=== PATIENT | female | born 1990 | race Two or more races ===

== ENCOUNTER → 2023-12-10 | Outpatient (REF) | payer OTHER | LOC: M SFHCWAGY 17:12 | PROVIDERS: ATTEND Obstetrics & Gynecology | DX: Z36.89 Encounter for other specified antenatal screening (principal); Z3A.36 36 weeks gestation of pregnancy ==

== ENCOUNTER → 2023-12-18 | Outpatient (REF) | payer OTHER | LOC: M SFHCWAGY 17:20 | PROVIDERS: ATTEND Obstetrics & Gynecology | DX: Z3A.37 37 weeks gestation of pregnancy (principal) ==

== ENCOUNTER 2023-12-27 19:19 | Outpatient (CLI) | payer OTHER ==
[~2023-12-27] VITALS: Ht 167.6 cm; Wt 68.7 kg
[2023-12-27 19:37] VITALS: BP 126/76; O2SAT 100
[2023-12-27] MEDS ORDERED: HOME MED LIST COMPLETE! XX SCH (19:45)
== END 2023-12-27 22:40 | disposition home or self-care (01) ==
LOC: M LDO 19:19
PROVIDERS: ATTEND Advanced Practice Midwife
DX: O47.1 False labor at or after 37 completed weeks of gestation (principal); O34.219 Maternal care for unspecified type scar from previous cesarean delivery; Z3A.38 38 weeks gestation of pregnancy
CPT/HCPCS: 59025; G0463

== ENCOUNTER 2024-01-01 00:17 | Outpatient (CLI) | payer OTHER ==
[~2024-01-01] VITALS: Ht 167.6 cm; Wt 70.0 kg
[2024-01-01] MEDS ORDERED: HOME MED LIST COMPLETE! XX SCH (00:30)
[2024-01-01 00:34] VITALS: BP 109/69
[2024-01-01 03:39] VITALS: BP 112/72
[2024-01-02] MEDS ORDERED: PNV,1TAB3 (12:05)
== END 2024-01-01 03:52 | disposition home or self-care (01) ==
LOC: M LDO 00:17
PROVIDERS: ATTEND Obstetrics & Gynecology
DX: O47.1 False labor at or after 37 completed weeks of gestation (principal); O34.219 Maternal care for unspecified type scar from previous cesarean delivery; Z3A.39 39 weeks gestation of pregnancy
CPT/HCPCS: 59025; G0463

== ENCOUNTER 2024-04-28 08:57 | Day surgery (SDC) | payer OTHER ==
[~2024-04-28] VITALS: Ht 167.6 cm; Wt 64.2 kg
[~2024-04-28 08:57] MED LIST: PNV,1TAB3; PRENTAB53 PO; [UNRECOGNIZED DRUG - OTHER]
[2024-04-28] MEDS ORDERED: NS 1,000 ML IV SCH (09:00)
[2024-04-28] MEDS: ACETAMINOPHEN 500 MG TAB PO ONE (09:27)
[2024-04-28] MEDS ORDERED: MIDAZOLAM INJ 2MG/2ML VIAL As Ordered ONE (09:55)
[2024-04-28] MEDS ORDERED: fentaNYL 100 MCG/2 ML INJECTION As Ordered ONE (09:55)
[2024-04-28] MEDS ORDERED: propofoL 200 MG/20 ML VIAL As Ordered ONE (09:55)
[2024-04-28] MEDS ORDERED: ROCURONIUM BROMIDE 50MG/5ML VIAL As Ordered ONE (09:55)
[2024-04-28] MEDS ORDERED: LIDOCAINE 2% 100MG/5ML SDV (FOR ANES.) As Ordered ONE (09:55)
[2024-04-28] MEDS ORDERED: ONDANSETRON 4MG 2ML VIAL As Ordered ONE (09:55)
[2024-04-28] MEDS ORDERED: SUGAMMADEX SODIUM 500 MG/5 ML VIAL (BRIDION) As Ordered ONE (10:39)
[2024-04-28] MEDS ORDERED: KETOROLAC 60MG 2ML VIAL As Ordered ONE (10:46)
[2024-04-28] MEDS ORDERED: fentaNYL 100 MCG/2 ML INJECTION IV PRN (11:10)
[2024-04-28] MEDS ORDERED: ONDANSETRON 4MG 2ML VIAL IV PRN (11:10)
[2024-04-28] MEDS ORDERED: NS 250 ML IV SCH ×2 (11:10→11:12)
[2024-04-28] MEDS ORDERED: oxyCODONE 5MG TAB PO PRN (11:10)
[2024-04-28] MEDS ORDERED: HYDROMORPHONE HCL 0.5 MG/ 0.5 ML SYRINGE IV PRN (11:10)
[2024-04-28 12:35] VITALS: BP 122/58; TEMP 97.6; O2SAT 100
== END 2024-04-28 12:38 | disposition home or self-care (01) ==
LOC: M SDC 08:57
PROVIDERS: ATTEND General Practice
DX: Z30.2 Encounter for sterilization (principal); Z88.8 Allergy status to other drugs, medicaments and biological substances; Z79.899 Other long term (current) drug therapy
CPT/HCPCS: 36415; 58661; 81025; 86850; 86900; 86901; 88302; J0665; J1100; J1885; J2250; J2405; J3010